=== PATIENT | female | born 1955 | race African-American/Black ===

== ENCOUNTER 2017-01-25 00:57 | Emergency (ER) | payer OTHER ==
[2017-01-25 01:17] VITALS: BP 116/67; BMI 21.9
--- NOTE | 2017-01-25 01:56 | DR.GENAD ---
HPI - PCP Primary Care Physician: MOLLY EMERSON - HPI Comment HPI Comment: PATIENT PLACE IN HOSPICE YESTERDAY. SHE HAS METASTIC COLON CANCER. INCREASING SOB TODAY. NO FEVER. INCREASING WEAKNESS WELL. NO FEVER. STOP EATING TODAY. HER CHILDRED AND FAMILY MEMBERS IN ED WITH PATIENT. HOSPICE NURSES ARE IN ED WITH PATIENT AND FAMILY. - Complaint/Symptoms Chief Complaint Doctors Comments: SOB, GENERALIZE WEAKNESS. Chief Complaint:: DIFFICULTY BREATHING AND AMS WAS PLACED ON HOSPICE CARE YESTERDAY, Self Treatment fo Chief Complaint: NONE - Nurses notes reviewed Nurses Notes Review: Yes - Source History Provided: Family Member, EMS - Mode of Arrival Mode of Arrival: Stretcher - Timing Onset of Chief Complaint: 01/25/17 Came on: Suddenly - Duration Duration: Constant Duration: Hours - Severity Severity: Moderate PMH - PMH Past Medical History: Yes Past Medical History Comment: LUPUS FIBROMYALGIA, THYROID, COLON CA Past Surgical History: Yes Surgical History: Unknown - Family History History of Family Medical Conditions: No - Social History Does patient currently use any type of tobacco product: Yes Have you used tobacco products in the last 12 months: Yes Type of Tobacco Use: Cigarettes Does any household member use tobacco: No Alcohol Use: None Do you use any recreational Drugs:: No Lives With: Alone Lives Where: Home - infectious screening In the last 2 months have you had wt loss of >10#?: NO Have you had fever, night sweats or hemotysis?: No Have you traveled outside the country in the last 6 months?: No Isolation: Standard ROS - Review of Systems Constitutional: Weakness, Fatigue, Loss of Appetite. negative: Chills, Diaphoresis, Fever Eyes: negative: Eye Pain, Discharge ENTM: negative: Ear Pain, Nose Discharge, Nose Congestion, Throat Pain Respiratoy: Non-Productive Cough, Short of Breath, Wheezing. negative: Hemoptysis Cardiovascular: Edema. negative: Chest Pain Gastrointestinal/Abdominal: Abdominal Pain, Nausea Genitourinary: No Symptoms Reported. negative: Dysuria, Frequency, Hematuria Neurological: Headache, Weakness, Problems Walking Musculoskeletal: Muscle Pain Integumentary: Change in Color, Dryness, Juandice Hematologic/Lymphatic: No Symptoms Reported Endocrine: No Symptoms Reported All Other Systems: Reviewed and Negative PE - Vital Signs Vitals: Temperature 97.6 F Pulse Rate 102 Respiratory Rate 16 Blood Pressure 116/67 O2 Sat by Pulse Oximetry 97 - General Limitations: Altered Mental Status General Appearance: Alert - Head Head Exam: Normal Inspection - Eyes Eye exam: PERRL - ENT ENT Exam: Normal External Ear Exam External Ear Exam: Normal External Inspection TM/Canal Exam: Bilateral Normal Nose Exam: Normal Nose Exam Mouth Exam: negative: Trismus, Lip Swelling, Tongue Elevation Throat Exam: Normal Inspection - Neck Neck Exam: Trachea Midline. negative: Tenderness, Meningismus, Lymphadenopathy - Chest Chest Inspection: Symmetric Chest Wall Rise - Respiratory Respiratory Exam: Accessory Muscle Use, Respiratory Distress Respiratory Exam: Bilateral Wheezing, Bilateral Rales, Bilateral Rhonchi, Upper Wheezing, Upper Rhonchi, Lower Wheezing, Lower Rales, Lower Rhonchi - Cardiovascular Cardiovascular Exam: Regular Rate, Normal Rhythm, Normal Heart Sounds - Abdominal Exam Abdominal Exam: Normal Bowel Sounds, Soft, Tenderness Abdominal Tenderness: Diffuse, Moderate - Back Back Exam: Paraspinal Tenderness - Neurologic Neurological Exam: Alert, Other (AMS) - Psychiatric Psychiatric Exam: Anxious - Skin Skin Exam: Erythema MDM - Additional Information Additional Information Obtained From: Family - Differential Diagnosis Differential Diagnosis: COLON CA/METASTATIC. GENERALIZE WEAKNESS, RESP DISTRESS , PNEUMONIA Course - Treatment Treatment: MEDS PER ORDERS. - Consultation Consultation Comments: TWO OF PATIENTS HOSPICE NURSES IN ED WITH PATIENT AND HER FAMILY. FAMILY GIVEN OPTION TO KEEP PATIENT IN HOSPITAL ON HOSPICE BED AND GIVE IV ANTIBIOTICS AND IV FLUIDS. FAMILY WANT TO TAKE PATIENT HOME. IM ROCEPHIN IN ED AND PRESCRIPTION FOR PO LEVAQUIN PRESCRIBE. - Education/Counseling Education/Counseling: Family, Education Educated On: Diagnosis, Needs for Follow Up ROR - Labs Reviewed Laboratory Results Reviewed?: Yes Result Diagrams: 01/25/17 01:45 01/25/17 01:45 Laboratory: WBC 5.5 X10^3/uL (3.6-10.0) 01/25/17 01:45 RBC 3.45 X10^6/uL (3.5-5.4) L 01/25/17 01:45 Hgb 10.5 g/dL (12.0-16.0) L 01/25/17 01:45 Hct 29.9 % (36.0-47.0) L 01/25/17 01:45 MCV 86.9 fL (80.0-100.0) 01/25/17 01:45 MCH 30.6 pg (27.0-34.0) 01/25/17 01:45 MCHC 35.2 g/dL (33.0-35.0) H 01/25/17 01:45 RDW 21.9 % (11.6-16.5) H 01/25/17 01:45 Plt Count 142 X10^3/uL (150.0-450.0) L 01/25/17 01:45 Plt Count Comment Adequate (ADEQUATE) 01/25/17 01:45 MPV 8.4 fL (7.4-11.0) 01/25/17 01:45 Neut % 37.5 % (42.0-75.0) L 01/25/17 01:45 Lymph % 41.0 % (21.0-51.0) 01/25/17 01:45 [place] % 20.8 % (0.0-13.0) H 01/25/17 01:45 Eos % 0.4 % (0.9-2.9) L 01/25/17 01:45 Baso % 0.3 % (0.2-1.0) 01/25/17 01:45 Neut # 2.1 x10^3/uL (2.2-4.8) L 01/25/17 01:45 Lymph # 2.3 X10^3/uL (1.3-2.9) 01/25/17 01:45 [place] # 1.1 x10^3/uL (0.3-0.8) H 01/25/17 01:45 Eos # 0.0 x10^3/uL (0.0-0.2) 01/25/17 01:45 Baso # 0.0 X10^3/uL (0.0-0.1) 01/25/17 01:45 Absolute Nucleated RBC 1.7 /100WBC 01/25/17 01:45 Total Counted 100 01/25/17 01:45 Neutrophils % (Manual) 45 % (39-76) 01/25/17 01:45 Band Neutrophils % 13 % (0-10) H 01/25/17 01:45 Lymphocytes % (Manual) 10 % (13-43) L 01/25/17 01:45 Monocytes % (Manual) 22 % (4-9) H 01/25/17 01:45 Eosinophils % (Manual) 2 % (0-6) 01/25/17 01:45 Metamyelocytes % 6 01/25/17 01:45 Myelocytes % 2 01/25/17 01:45 Nucleated RBCs 2 01/25/17 01:45 Plt Morphology Comment Normal (NORMAL) 01/25/17 01:45 RBC Morphology Abnormal (NORMAL) A 01/25/17 01:45 Poikilocytosis 2+ A 01/25/17 01:45 Anisocytosis 2+ A 01/25/17 01:45 Target Cells Noted 01/25/17 01:45 Tear Drop Cells Noted 01/25/17 01:45 Sodium 132 mmol/L (136-145) L 01/25/17 01:45 Corrected Sodium TNP 01/25/17 01:45 Potassium 4.5 mmol/L (3.5-5.1) 01/25/17 01:45 Chloride 93 mmol/L (98-107) L 01/25/17 01:45 Carbon Dioxide 19.8 mmol/L (21-32) L 01/25/17 01:45 BUN 42 mg/dL (7-18) H 01/25/17 01:45 Creatinine 3.41 mg/dL (0.55-1.02) H 01/25/17 01:45 Est GFR (MDRD) Af Amer 17 (>60) L 01/25/17 01:45 Est GFR (MDRD) Non-Af 14 (>60) L 01/25/17 01:45 Glucose 100 mg/dL (65-99) H 01/25/17 01:45 Calcium 8.2 mg/dL (8.5-10.1) L 01/25/17 01:45 Corrected Calcium 10.1 mg/dL (8.5-10.1) 01/25/17 01:45 Total Bilirubin 27.60 mg/dL (0.2-1.0) H 01/25/17 01:45 AST 163 Units/L (15-37) H 01/25/17 01:45 ALT 57 Units/L (12-78) 01/25/17 01:45 Alkaline Phosphatase 388 Units/L (46-116) H 01/25/17 01:45 Total Protein 6.8 g/dL (6.4-8.2) 01/25/17 01:45 Albumin 1.6 g/dL (3.4-5.0) L 01/25/17 01:45 Globulin 5.2 g/dL (2.5-4.5) H 01/25/17 01:45 Albumin/Globulin Ratio 0.3 Ratio (1.1-2.1) L 01/25/17 01:45 - XRAY XRAY Interpreted by: Radiologist XRAY Findings: REPORT DISCUSS WITH PATIENT AND FAMILY. - Diagnosis Discharge Problem: Pneumonia, Generalized weakness, SOB (shortness of breath), Colon cancer metastasized to multiple sites - Discharge Plan Disposition: 01 HOME, SELF-CARE Condition: Stable Prescriptions: Cefdinir [OMNICEF CAP 300 mg *] 300 mg PO BID #20 cap - Follow ups/Referrals Follow ups/Referrals: IDANIA BARNES [Primary Care Provider] - 3 days - Instructions Instructions: Shortness of Breath, [id number] Additional Instructions: FOLLOW UP WITH HOSPICE DOCTOR IN AM. RETURN TO ED IF WORSE.
--- NOTE | 2017-01-25 01:58 | RAD ---
EXAM: Chest X-ray INDICATION: Shortness of breath COMPARISION: No prior TECHNIQUE: AP, single view FINDINGS: Coarse interstitial markings are seen throughout both lungs. Lung volumes are decreased bilaterally. The cardiac silhouette and mediastinum appear unremarkable. There is a small right pleural effusion . Right mick catheter tip is in the superior vena cava/right atrium. The regional skeleton is intac t. IMPRESSION: Coarse interstitial markings are seen throughout both lungs. There is a small right pleural effusion . Findings may be secondary to viral or atypical type pneumonia. Chronic interstitial changes may ap pear similarly. Correlate with clinical findings. Reported By:
[2017-01-25 02:03] LABS: HEMOGLOBIN 10.5 g/dL (12.0-16.0); WHITE BLOOD COUNT 5.5 X10^3/uL (3.6-10.0)
[2017-01-25 02:05] LABS: BASOPHILS % (AUTO) 0.3 % (0.2-1.0); EOSINOPHILS % (AUTO) 0.4 % (0.9-2.9); HEMATOCRIT 29.9 % (36.0-47.0); LYMPHOCYTES # (AUTO) 2.3 X10^3/uL (1.3-2.9); MEAN CORPUSCULAR HEMOGLOBIN 30.6 pg (27.0-34.0); MEAN CORPUSCULAR HGB CONC 35.2 g/dL (33.0-35.0); MEAN CORPUSCULAR VOLUME 86.9 fL (80.0-100.0); MEAN PLATELET VOLUME 8.4 fL (7.4-11.0); MONOCYTES # (AUTO) 1.1 x10^3/uL (0.3-0.8); MONOCYTES % (AUTO) 20.8 % (0.0-13.0); NEUTROPHILS # (AUTO) 2.1 x10^3/uL (2.2-4.8); NEUTROPHILS % (AUTO) 37.5 % (42.0-75.0); PLATELET COUNT 142 X10^3/uL (150.0-450.0); RED BLOOD COUNT 3.45 X10^6/uL (3.5-5.4); RED CELL DISTRIBUTION WIDTH 21.9 % (11.6-16.5)
[2017-01-25 02:14] LABS: ALANINE AMINOTRANSFERASE 57 Units/L (12-78); ALBUMIN 1.6 g/dL (3.4-5.0); ALKALINE PHOSPHATASE 388 Units/L (46-116); ASPARTATE AMINO TRANSFERASE 163 Units/L (15-37); BLOOD UREA NITROGEN 42 mg/dL (7-18); CALCIUM 8.2 mg/dL (8.5-10.1); CARBON DIOXIDE 19.8 mmol/L (21-32); CHLORIDE 93 mmol/L (98-107); COR CA(FOR HYPOALB) 10.1 mg/dL (8.5-10.1); CREATININE 3.41 mg/dL (0.55-1.02); GLUCOSE 100 mg/dL (65-99); SODIUM 132 mmol/L (136-145); TOTAL PROTEIN 6.8 g/dL (6.4-8.2); eGFR BLACK RACES 17 (>60); eGFR NON BLACK RACES 14 (>60)
[2017-01-25] MEDS ORDERED: ROCEPHIN VIAL 1 GM IM ONE (02:30)
[2017-01-25] MEDS ORDERED: ROCEPHIN VIAL 1 GM ONE (02:31)
[2017-01-25] MEDS ORDERED: XYLOCAINE 1 % (PLAIN) ONE (02:31)
[2017-01-25 02:32] LABS: ANISOCYTOSIS 2+; BAND NEUTROPHILS % 13 % (0-10); METAMYELOCYTES % 6; MYELOCYTES % 2; PLATELET MORPHOLOGY COMMENT NORMAL (NORMAL); POIKILOCYTOSIS 2+; TARGET CELLS NOTED; TEAR DROP CELLS NOTED
--- NOTE | 2017-01-25 13:10 | DR.GENAD ---
HPI - PCP Primary Care Physician: MOLLY EMERSON - Complaint/Symptoms Chief Complaint:: DIFFICULTY BREATHING AND AMS WAS PLACED ON HOSPICE CARE YESTERDAY, Self Treatment fo Chief Complaint: NONE - Nurses notes reviewed Nurses Notes Review: Yes - Source History Provided: Family Member, EMS - Mode of Arrival Mode of Arrival: Stretcher - Timing Onset of Chief Complaint: 01/25/17 Came on: Suddenly - Duration Duration: Constant Duration: Hours - Severity Severity: Moderate PMH - PMH Past Medical History: Yes Past Medical History Comment: LUPUS FIBROMYALGIA, THYROID, COLON CA Past Surgical History: Yes Surgical History: Unknown - Family History History of Family Medical Conditions: No - Social History Does patient currently use any type of tobacco product: Yes Have you used tobacco products in the last 12 months: Yes Type of Tobacco Use: Cigarettes Does any household member use tobacco: No Alcohol Use: None Do you use any recreational Drugs:: No Lives With: Alone Lives Where: Home - infectious screening In the last 2 months have you had wt loss of >10#?: NO Have you had fever, night sweats or hemotysis?: No Have you traveled outside the country in the last 6 months?: No Isolation: Standard PE - Vital Signs Vitals: Temperature 97.6 F Pulse Rate 102 Respiratory Rate 16 Blood Pressure 116/67 O2 Sat by Pulse Oximetry 97 ROR - Labs Reviewed Laboratory Results Reviewed?: Yes Result Diagrams: 01/25/17 01:45 01/25/17 01:45 Laboratory: WBC 5.5 X10^3/uL (3.6-10.0) 01/25/17 01:45 RBC 3.45 X10^6/uL (3.5-5.4) L 01/25/17 01:45 Hgb 10.5 g/dL (12.0-16.0) L 01/25/17 01:45 Hct 29.9 % (36.0-47.0) L 01/25/17 01:45 MCV 86.9 fL (80.0-100.0) 01/25/17 01:45 MCH 30.6 pg (27.0-34.0) 01/25/17 01:45 MCHC 35.2 g/dL (33.0-35.0) H 01/25/17 01:45 RDW 21.9 % (11.6-16.5) H 01/25/17 01:45 Plt Count 142 X10^3/uL (150.0-450.0) L 01/25/17 01:45 Plt Count Comment Adequate (ADEQUATE) 01/25/17 01:45 MPV 8.4 fL (7.4-11.0) 01/25/17 01:45 Neut % 37.5 % (42.0-75.0) L 01/25/17 01:45 Lymph % 41.0 % (21.0-51.0) 01/25/17 01:45 [place] % 20.8 % (0.0-13.0) H 01/25/17 01:45 Eos % 0.4 % (0.9-2.9) L 01/25/17 01:45 Baso % 0.3 % (0.2-1.0) 01/25/17 01:45 Neut # 2.1 x10^3/uL (2.2-4.8) L 01/25/17 01:45 Lymph # 2.3 X10^3/uL (1.3-2.9) 01/25/17 01:45 [place] # 1.1 x10^3/uL (0.3-0.8) H 01/25/17 01:45 Eos # 0.0 x10^3/uL (0.0-0.2) 01/25/17 01:45 Baso # 0.0 X10^3/uL (0.0-0.1) 01/25/17 01:45 Absolute Nucleated RBC 1.7 /100WBC 01/25/17 01:45 Total Counted 100 01/25/17 01:45 Neutrophils % (Manual) 45 % (39-76) 01/25/17 01:45 Band Neutrophils % 13 % (0-10) H 01/25/17 01:45 Lymphocytes % (Manual) 10 % (13-43) L 01/25/17 01:45 Monocytes % (Manual) 22 % (4-9) H 01/25/17 01:45 Eosinophils % (Manual) 2 % (0-6) 01/25/17 01:45 Metamyelocytes % 6 01/25/17 01:45 Myelocytes % 2 01/25/17 01:45 Nucleated RBCs 2 01/25/17 01:45 Plt Morphology Comment Normal (NORMAL) 01/25/17 01:45 RBC Morphology Abnormal (NORMAL) A 01/25/17 01:45 Poikilocytosis 2+ A 01/25/17 01:45 Anisocytosis 2+ A 01/25/17 01:45 Target Cells Noted 01/25/17 01:45 Tear Drop Cells Noted 01/25/17 01:45 Sodium 132 mmol/L (136-145) L 01/25/17 01:45 Corrected Sodium TNP 01/25/17 01:45 Potassium 4.5 mmol/L (3.5-5.1) 01/25/17 01:45 Chloride 93 mmol/L (98-107) L 01/25/17 01:45 Carbon Dioxide 19.8 mmol/L (21-32) L 01/25/17 01:45 BUN 42 mg/dL (7-18) H 01/25/17 01:45 Creatinine 3.41 mg/dL (0.55-1.02) H 01/25/17 01:45 Est GFR (MDRD) Af Amer 17 (>60) L 01/25/17 01:45 Est GFR (MDRD) Non-Af 14 (>60) L 01/25/17 01:45 Glucose 100 mg/dL (65-99) H 01/25/17 01:45 Calcium 8.2 mg/dL (8.5-10.1) L 01/25/17 01:45 Corrected Calcium 10.1 mg/dL (8.5-10.1) 01/25/17 01:45 Total Bilirubin 27.60 mg/dL (0.2-1.0) H 01/25/17 01:45 AST 163 Units/L (15-37) H 01/25/17 01:45 ALT 57 Units/L (12-78) 01/25/17 01:45 Alkaline Phosphatase 388 Units/L (46-116) H 01/25/17 01:45 Total Protein 6.8 g/dL (6.4-8.2) 01/25/17 01:45 Albumin 1.6 g/dL (3.4-5.0) L 01/25/17 01:45 Globulin 5.2 g/dL (2.5-4.5) H 01/25/17 01:45 Albumin/Globulin Ratio 0.3 Ratio (1.1-2.1) L 01/25/17 01:45 - Diagnosis Discharge Problem: Pneumonia, Generalized weakness, SOB (shortness of breath), Colon cancer metastasized to multiple sites - Discharge Plan Disposition: 01 HOME, SELF-CARE Condition: Stable Prescriptions: Cefdinir [OMNICEF CAP 300 mg *] 300 mg PO BID #20 cap - Follow ups/Referrals Follow ups/Referrals: IDANIA BARNES [Primary Care Provider] - 3 days - Instructions Instructions: Shortness of Breath, [id number] Additional Instructions: FOLLOW UP WITH HOSPICE DOCTOR IN AM. RETURN TO ED IF WORSE.
== END 2017-01-25 03:16 | disposition home or self-care (01) ==
LOC: ER 00:57
DX: J18.9 Pneumonia, unspecified organism (principal); C18.9 Malignant neoplasm of colon, unspecified; R06.02 Shortness of breath; R53.1 Weakness; J90 Pleural effusion, not elsewhere classified
CPT/HCPCS: 36415; 71010; 80053; 85025; 96372; 99282; 99283; J0696; J2001